=== PATIENT | female | born 2000 | race Caucasian/White ===

== ENCOUNTER 2021-04-28 15:21 | Emergency (ER) | payer MEDICAID, SELFPAY ==
[2021-04-28 15:40] VITALS: BP 143/85; PULSE 123; RESP 18; TEMP 37.3; O2SAT 98; BMI 35.6
[2021-04-28 16:06] LABS: Glucose Urine UA NEG (NEG); Leukocyte Esterase Urine NEG (NEG); Nitrite Urine NEG (NEG); Urine Blood NEG (NEG); Urine Ketones NEG (NEG); Urine Protein TRACE MG/DL (NEG-TRACE)
[2021-04-28 16:09] LABS: Appearance Urine CLEAR; Color Urine YELLOW
[2021-04-28 16:11] LABS: UPreg QC Valid YES; Urine Pregnancy NEGATIVE (NEGATIVE)
[2021-04-28 17:09] LABS: MANUAL DIFF FLAG NO
[2021-04-28 17:11] LABS: Basophils Percent Auto 0.6 % (0-2); Eosinophils Absolute Auto 0.2 X10*3/uL (0.0-0.4); Eosinophils Percent Auto 3.9 % (0-4); Hematocrit 38.4 % (37-47); Hemoglobin 12.7 g/dl (12.0-16.0); Imm Gran Abs Auto 0.03 X10*3/uL (0.00-0.03); Imm Gran Pct Auto 0.6 % (0.0-0.4); Lymphocytes Absolute Auto 1.4 X10*3/uL (1.2-4.9); Mean Corpuscular HGB Conc 33.1 g/dl (31.0-35.0); Mean Corpuscular Hemoglobin 28.9 pg (27.0-33.0); Mean Corpuscular Volume 87.3 fL (80-98); Mean Platelet Volume 9.6 fL (9.4-12.3); Monocytes Absolute Auto 0.6 X10*3/uL (0.1-1.2); Monocytes Percent Auto 11.2 % (2-11); Neutrophils Absolute Auto 3.1 X10*3/uL (2.0-8.3); Neutrophils Percent Auto 57.7 % (45-73); Platelet Count 237 X10*3/uL (160-400); Red Cell Distribution Width 12.1 % (11.0-16.0); White Blood Count 5.4 X10*3/uL (4.8-10.8)
[2021-04-28 17:39] LABS: Alanine Aminotransferase 11 U/L (0-31); Albumin Level 4.3 g/dL (3.5-5.0); Alkaline Phosphatase 59 U/L (39-117); Anion Gap 13 (12-20); Aspartate Amino Transferase 16 U/L (5-31); Bilirubin Total 0.7 mg/dL (0.0-1.0); Blood Urea Nitrogen 13 mg/dL (9-16); Carbon Dioxide 25 mmol/L (22-29); Chloride 105 mmol/L (96-108); Creatinine Clr Calc Pharmacy 118.9; Estimated Glomerular Filt Rate > 60; Glucose Random 83 mg/dL (60-115); Potassium 4.2 mmol/L (3.3-5.1); Sodium 139 mmol/L (135-145)
--- NOTE | 2021-04-28 20:02 | ED.FEMALEGU ---
HPI - Female Genitourinary General Chief complaint: Vaginal Bleeding Stated complaint: irregular bledding in vagina Source: patient Mode of arrival: ambulatory Limitations: no limitations History of Present Illness HPI Narrative: 20-year-old female with no significant past medical history presents with abnormal vaginal bleeding, abnormal vaginal discharge, and pelvic pain. States that she has a partner that she does not trust and would like to be tested and treated for STI infections. She states that she has been tired over the past few days, does not report a fever but has had some chills with nausea. She does not report any chest pain or pressure, palpitations, abdominal distention, dysuria, hematuria, vomiting, diarrhea, constipation, melena, hematochezia, edema, assault, trauma, rashes or any other concerning symptoms. MD elicited complaint: vaginal bleeding, vaginal discharge, pelvic pain and possible STD Onset (ago): day(s) Location of symptoms: suprapubic, vaginal and pelvis Severity: moderate Severity scale (1-10): 7 Quality of pain: aching Consistency: progressively worsening Vaginal discharge: white, vaginal odor and other (Mcclain) Vaginal bleeding: moderate Relieving factors: none Sexual activity: Yes Patient : No Date of Last Menstrual Period: 04/14/21 Related Data Previous Rx's Medication Instructions Recorded doxycycline monohydrate 100 mg PO BID 14 Days #28 cap 04/28/21 fluconazole [Diflucan] 150 mg PO Q3D #2 tab 04/28/21 metronidazole [Flagyl] 500 mg PO Q12H 14 Days #28 tab 04/28/21 ondansetron HCl [Zofran] 4 mg PO Q8H PRN #14 tab 04/28/21 Allergies Allergy/AdvReac Type Severity Reaction Status Date / Time amoxicillin Allergy Rash Verified 04/28/21 15:39 Review of Systems Review of Systems: Constitutional: No Fever, positive Chills ENT/Mouth: No sore throat, No Rhinorrhea Eyes: No Eye Pain, No Redness Cardiovascular: No Chest Pain, No SOB Respiratory: No Cough, No Sputum, No Wheezing Gastrointestinal: positive Nausea, No Vomiting, No Diarrhea, positive abdominal pain Genitourinary: positive irregular bleeding, No Dysuria, No Urinary Frequency, positive pelvic pain Musculoskeletal: No Myalgias Skin: No rash Neuro: No Weakness, No Headache Psych: No Anxiety/Panic, No Depression Heme/Lymph: No bruising, No Lymphadenopathy Endocrine: No Polyuria, No Polydipsia Yes all other systems are reviewed and are negative [facility] Past Medical History Medical History (Updated 04/28/21 @ 22:59 by Jordana Richards NP) No known health problems Date of Last Menstrual Period: 04/14/21 Social History Social History Alcohol intake: current Alcohol intake frequency: a few times a month Patient Tobacco Use Status: Never used Tobacco Use of substances other than those prescribed or required for medical reasons: No Advance Directives: No Advance Directives Information Provided: Yes Patient : No Physical Exam Vital Signs: Vital Signs: Last Vital Signs Temp 98.3 F 04/28/21 21:47 Pulse 97 04/28/21 22:12 Resp 18 04/28/21 22:12 BP 119/73 04/28/21 22:12 Pulse Ox 99 04/28/21 22:12 Body Mass Index 35.6 Appearance: Alert. Oriented X3. No acute distress. Eyes: Pupils equal, round and reactive to light. ENT: Pharynx normal. Neck: Normal inspection. Neck supple. CVS: Normal heart rate and rhythm. Pulses normal. Respiratory: No respiratory distress. Breath sounds normal. Abdomen: Soft and nontender. Skin: Skin warm and dry. Normal skin color. Normal skin turgor. Extremities: No lower extremity edema. Neuro: No motor deficit. No sensory deficit. : General: Yes bladder normal to palpation External Female Exam: normal external appearance and normal appearance of the urethra Speculum Exam - Vagina: abnormal vaginal discharge white, mcclain and frothy Speculum Exam - Cervix: normal appearance of the cervix, Cervical os closed and Cervical tenderness present Bimanual exam- vagina & uterus: uterine size normal, bladder normal to palpation, Cervical tenderness present and cervical motion tenderness Bimanual Exam- Adnexa, other: normal adnexae Course Course Course Narrative: 20-year-old female with no significant past medical history presents with abnormal vaginal bleeding, abnormal vaginal discharge that is white mcclain frothy and copious, has concerns about possible STI infection. States that she does have some difficulty sitting down and does feel pelvic pain when changing positions. Plan of care is for CBC, Chem 7, lactic, cultures, pelvic exam. Pelvic exam positive for cervical motion tenderness, copious amounts of mcclain from the white discharge consistent with bacterial vaginosis. We did treat for GC chlamydia and syphilis with penicillin G IM, ceftriaxone 500 IM, and azithromycin 1000 mg. Will treat with doxycycline and Flagyl for suspected BV and pelvic inflammatory disease. Patient was advised to follow up with analytic manager, pelvic rest for the next 2 weeks. Patient verbalized understanding of and agrees to plan of care discharge home. MDM - Female Genitourinary Differential Diagnosis Differential diagnosis: Likely urinary tract infection, bacterial vaginosis, trichomoniasis, cervicitis, vaginitis and cystitis Medical Records Attestation: I reviewed the patient's medical records. Lab Data Attestation: I reviewed the patient's lab results. Result diagrams: 04/28/21 16:52 04/28/21 16:52 Labs: Lab Results 04/28/21 04/28/21 04/28/21 Range/Units 15:50 15:50 16:52 WBC 5.4 (4.8-10.8) X10*3/uL RBC 4.40 (4.20-5.50) X10*6/uL Hgb 12.7 (12.0-16.0) g/dl Hct 38.4 (37-47) % MCV 87.3 (80-98) fL MCH 28.9 (27.0-33.0) pg MCHC 33.1 (31.0-35.0) g/dl RDW 12.1 (11.0-16.0) % Plt Count 237 (160-400) X10*3/uL MPV 9.6 (9.4-12.3) fL Immature Gran % (Auto) 0.6 H (0.0-0.4) % Neut % (Auto) 57.7 (45-73) % Lymph % (Auto) 26.0 (20-40) % [place] % (Auto) 11.2 H (2-11) % Eos % (Auto) 3.9 (0-4) % Baso % (Auto) 0.6 (0-2) % Lymph # (Auto) 1.4 (1.2-4.9) X10*3/uL [place] # (Auto) 0.6 (0.1-1.2) X10*3/uL Eos # (Auto) 0.2 (0.0-0.4) X10*3/uL Baso # (Auto) 0.0 (0.0-0.2) X10*3/uL Abs Immat Gran (auto) 0.03 (0.00-0.03) X10*3/uL Absolute Neuts (auto) 3.1 (2.0-8.3) X10*3/uL Absolute Nucleated RBC 0.000 (0.0-0.012) X10*3/uL Nucleated RBC % (auto) 0.0 (0.0-0.2) /100WBC Hold Blue Top Sodium (135-145) mmol/L Potassium (3.3-5.1) mmol/L Chloride (96-108) mmol/L Carbon Dioxide (22-29) mmol/L Anion Gap (12-20) BUN (9-16) mg/dL Creatinine (0.5-1.4) mg/dL Estim Creat Clear Calc Estimated GFR Random Glucose (60-115) mg/dL Calcium (8.4-10.2) mg/dL Total Bilirubin (0.0-1.0) mg/dL AST (5-31) U/L ALT (0-31) U/L Alkaline Phosphatase (39-117) U/L Total Protein (6.5-8.0) g/dL Albumin (3.5-5.0) g/dL Urine Color YELLOW Urine Appearance CLEAR Urine pH 7.0 (5.0-8.0) Ur Specific [place] 1.020 (1.005-1.025) Urine Protein TRACE (NEG-TRACE) MG/DL Urine Glucose (UA) NEG (NEG) MG/DL Urine Ketones NEG (NEG) MG/DL Urine Blood NEG (NEG) Urine Nitrite NEG (NEG) Ur Leukocyte Esterase NEG (NEG) Urine Test NEGATIVE (NEGATIVE) 04/28/21 04/28/21 Range/Units 16:52 16:52 WBC (4.8-10.8) X10*3/uL RBC (4.20-5.50) X10*6/uL Hgb (12.0-16.0) g/dl Hct (37-47) % MCV (80-98) fL MCH (27.0-33.0) pg MCHC (31.0-35.0) g/dl RDW (11.0-16.0) % Plt Count (160-400) X10*3/uL MPV (9.4-12.3) fL Immature Gran % (Auto) (0.0-0.4) % Neut % (Auto) (45-73) % Lymph % (Auto) (20-40) % [place] % (Auto) (2-11) % Eos % (Auto) (0-4) % Baso % (Auto) (0-2) % Lymph # (Auto) (1.2-4.9) X10*3/uL [place] # (Auto) (0.1-1.2) X10*3/uL Eos # (Auto) (0.0-0.4) X10*3/uL Baso # (Auto) (0.0-0.2) X10*3/uL Abs Immat Gran (auto) (0.00-0.03) X10*3/uL Absolute Neuts (auto) (2.0-8.3) X10*3/uL Absolute Nucleated RBC (0.0-0.012) X10*3/uL Nucleated RBC % (auto) (0.0-0.2) /100WBC Hold Blue Top SEE NOTE Sodium 139 (135-145) mmol/L Potassium 4.2 (3.3-5.1) mmol/L Chloride 105 (96-108) mmol/L Carbon Dioxide 25 (22-29) mmol/L Anion Gap 13 (12-20) BUN 13 (9-16) mg/dL Creatinine 0.69 (0.5-1.4) mg/dL Estim Creat Clear Calc 118.9 Estimated GFR > 60 Random Glucose 83 (60-115) mg/dL Calcium 9.0 (8.4-10.2) mg/dL Total Bilirubin 0.7 (0.0-1.0) mg/dL AST 16 (5-31) U/L ALT 11 (0-31) U/L Alkaline Phosphatase 59 (39-117) U/L Total Protein 7.0 (6.5-8.0) g/dL Albumin 4.3 (3.5-5.0) g/dL Urine Color Urine Appearance Urine pH (5.0-8.0) Ur Specific [place] (1.005-1.025) Urine Protein (NEG-TRACE) MG/DL Urine Glucose (UA) (NEG) MG/DL Urine Ketones (NEG) MG/DL Urine Blood (NEG) Urine Nitrite (NEG) Ur Leukocyte Esterase (NEG) Urine Test (NEGATIVE) Discharge Plan Discharge Clinical Impression: Dysfunctional uterine bleeding, Bacterial vaginosis, Acute pelvic inflammatory disease Patient Disposition: Home, Self-Care Instructions: Pelvic Inflammatory Disease (ED), Bacterial Vaginosis (ED) Additional Instructions: You were evaluated for abnormal vaginal bleeding, abnormal vaginal discharge, and pelvic pain. We are treating you for pelvic inflammatory disease with doxycycline 100 mg twice a day for the next 14 days and Flagyl 500 mg twice a day for the next 14 days. Do not drink alcohol while taking Flagyl. You will suffer serious side effects which include but are not limited to blacking out, syncope, severe nausea and vomiting. Please do not expose yourself to [place] while taking doxycycline. Doxycycline has a significant skin reaction when exposed to sunlight. This is a normal side effect of this medication. You must wear long sleeves and a hat when going outside. You may experience a yeast infection with these medications. I Have prescribed Diflucan, 2 tablets. If you noticed white clumpy discharge consistent with yeast infection please take 1 tablet and then repeat the dose 3 days after. Please follow-up with OBGYN. Pelvic rest for the next 14 days. you must see OBGYN prior to using tampons, having sex, or putting anything into the vagina. Thank you for choosing this emergency department for evaluation. Please follow-up with primary care physician as needed. Return to the emergency department for any new, concerning, or worsening symptoms. Prescriptions: New doxycycline monohydrate 100 mg capsule 100 mg PO BID 14 Days Qty: 28 RF: 0 metronidazole [Flagyl] 500 mg tablet 500 mg PO Q12H 14 Days Qty: 28 RF: 0 ondansetron HCl [Zofran] 4 mg tablet 4 mg PO Q8H PRN (Reason: nausea and vomiting) Qty: 14 RF: 0 fluconazole [Diflucan] 150 mg tablet 150 mg PO Q3D Qty: 2 RF: 0 Referrals: Junaid Cabrera MD [Physician] - 2 days (Pelvic inflammatory disease) Stand Alone Forms: Work/School Release Discharge Date/Time: 04/28/21 23:47
[2021-04-28 21:47] VITALS: BP 121/63; PULSE 96; RESP 16; TEMP 36.8; O2SAT 98
[2021-04-28] MEDS: Azithromycin 500 MG TABLET 1000 MG PO (21:59)
[2021-04-28] MEDS: cefTRIAXone sodium 500 MG, Lidocaine HCl 1 % MPF 1 ML IM (21:59)
[2021-04-28] MEDS: 0.9 % Sodium Chloride 1,000 ML 999 ML IVCONT (21:59)
[2021-04-28] MEDS: Penicillin G Benzathine 2,400,000 UNIT/4 ML SYRINGE 2400000 UNIT IM (22:00)
--- NOTE | 2021-04-28 22:00 | PC.NURSE ---
in injection of PCN split in 2 given bilat gluets.
[2021-04-28 22:12] VITALS: BP 119/73; PULSE 97; RESP 18; O2SAT 99
--- NOTE | 2021-04-28 22:14 | PC.NURSE ---
denies vag bleed at this time/ tolerated injections well. aware of plan for pelvic.
[2021-04-28] MEDS: metroNIDAZOLE 500 MG TABLET PO (23:38)
[2021-04-29 00:46] LABS: CT PCR NOT DETECTED (Not Detect.); NG PCR NOT DETECTED (Not Detect.)
[2021-04-29 11:50] LABS: BV Int Neg Control Negative (Negative); BV Int Pos Control Positive (Positive)
[2021-05-03 08:44] LABS: Syphilis Screen Nonreactive (Nonreactive)
== END 2021-04-28 23:47 | disposition home or self-care (01) ==
PROVIDERS: Nurse Practitioner Family; Emergency Provider Internal Medicine; PCP Pediatrics Adolescent Medicine
DX: N93.8 Other specified abnormal uterine and vaginal bleeding (principal); N76.0 Acute vaginitis; N73.9 Female pelvic inflammatory disease, unspecified; R10.2 Pelvic and perineal pain
CPT/HCPCS: 36415; 80053; 81003; 81025; 85025; 86780; 87480; 87491; 87510; 87591; 87660; 96360; 96361; 96372; 99284; J0561; J0696

== ENCOUNTER 2024-04-17 10:08 | Outpatient (AMB) | payer OTHER, SELFPAY ==
[2024-04-17 10:08] VITALS: BP 100/60; PULSE 112; O2SAT 100; BMI 18.0
--- NOTE | 2024-04-17 10:08 | AM.OFFWIN_ITS ---
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 Intake Note: Pt presents to the office today for c/o UTI symptoms that started about 2-3 days ago. She states she is having burning with urination and urinary frequency. Patient Tobacco Use Status: Never used Tobacco Allergies amoxicillin Allergy (Verified 04/17/24 10:11) Rash HPI HPI Comments History of Present Illness Details 23 y/o female patient who presents to [facility] in clinic with c/o Urinary symptoms for 3 days. C/o urinary frequency, urgency and pain with urination. Den ies any vaginal symptoms. [facility] Medical History (Updated 04/29/21 @ 00:01 by Marilou Faulkner) No known health problems Social History Alcohol intake: current Alcohol intake frequency: a few times a month Patient Tobacco Use Status: Never used Tobacco Review of Systems Const All systems reviewed & are unremarkable except as noted in HPI and below Physical Exam Vital Signs: Last Vital Signs Pulse 112 H 04/17/24 10:08 BP 100/60 04/17/24 10:08 Pulse Ox 100 04/17/24 10:08 Oxygen Delivery Method Room Air 04/17/24 10:08 BMI result Body Mass Index 18.0 Const General: comfortable and no acute distress Orientation/consciousness: patient oriented x3 General: Yes no CVA tenderness Back/Spine/Pelvis Back: no CVA tenderness Neuro General: patient oriented x3, gait normal and moves all extremities Psych Speech and movement: Normal speech and movement present Results AMB Urinalysis, Automated UA Leukoctes 500 Denys/uL Last Edit by Gill Gauthier CMA on 04/17/24 10:17 UA Nitrite Negative Last Edit by Gill Gauthier CMA on 04/17/24 10:17 UA Urobilinogen 0.2 mg/dL Last Edit by Gill Gauthier CMA on 04/17/24 10:17 UA Protein 100 mg/dL Last Edit by Gill Gauthier CMA on 04/17/24 10:17 UA pH 6.5 Last Edit by Gill Gauthier CMA on 04/17/24 10:17 UA Blood 200 Fede/uL Last Edit by Gill Gauthier, KRYSTA on 04/17/24 10:17 UA Specific [place] 1.020 Last Edit by Gill Gauthier, KRYSTA on 04/17/24 10:17 UA Ketone Positive Last Edit by Gill Gauthier, KRYSTA on 04/17/24 10:17 UA Bilirubin 0 mg/dL Last Edit by Gill Gauthier, KRYSTA on 04/17/24 10:17 UA Glucose 0 mg/dL Last Edit by Gill Gauthier, KRYSTA on 04/17/24 10:17 Results Reviewed Results Reviewed: Laboratory Last Values Urine pH (Auto) 6.5 04/17/24 10:17 Specific [place] (Auto) 1.020 04/17/24 10:17 Urine Protein (Auto) 100 mg/dL 04/17/24 10:17 Glucose (UA)(Auto) 0 mg/dL 04/17/24 10:17 Urine Ketones (Auto) Positive 04/17/24 10:17 Urine Blood (Auto) 200 Fede/uL 04/17/24 10:17 Urine Nitrite (Auto) Negative 04/17/24 10:17 Urine Bilirubin (Auto) 0 mg/dL 04/17/24 10:17 Urine Urobilinogen (Auto) 0.2 mg/dL 04/17/24 10:17 Leukocyte Esterase (Auto) 500 Denys/uL 04/17/24 10:17 Assessment & Plan Assessment & Plan (1) Cystitis: Code(s): N30.90 - Cystitis, unspecified without hematuria Plan: - Drink plenty water - Take medication as directed Orders: Orders AMB Urinalysis Automated Today Z13.9 - Encounter for screening, unspecified Medications: New nitrofurantoin monohyd/m-cryst 100 mg (Macrobid) must administer with a meal/food 100 mg PO Q12H 7 days 14 caps 0RF N30.90 - Cystitis, unspecified without hematuria Discontinued ondansetron HCl (Zofran) Please dispense sublingual tablet Discontinued Reason: Patient no longer taking 4 mg PO Q8H PRN 14 tabs 0RF nausea and vomiting doxycycline monohydrate Discontinued Reason: Patient no longer taking 100 mg PO BID 14 days 28 caps 0RF fluconazole (Diflucan) may repeat second dose 72 hrs after first dose if symptoms persist Discontinued Reason: Patient no longer taking 150 mg PO Q3D 2 tabs 0RF metronidazole (Flagyl) Discontinued Reason: Patient no longer taking 500 mg PO Q12H 14 days 28 tabs 0RF Coding Level of Care Code Est Pt Level 3 (34275) Diagnoses Cystitis N30.90 Time Spent (min) 15
== END 2024-04-17 10:47 | disposition home or self-care (01) ==
PROVIDERS: PCP Pediatrics Adolescent Medicine; Visit Provider Nurse Practitioner Family
DX: N30.90 Cystitis, unspecified without hematuria (principal)
CPT/HCPCS: 81003; 99213